=== PATIENT | female | born 1985 | race Hispanic/Latino ===

== ENCOUNTER 2019-08-24 09:01 | Emergency (ER) | payer OTHER, SELFPAY ==
--- NOTE | ~2019-08-24 | XR_ITS ---
EXAMINATION: XR lumbar spine 2-3V DATE: 08/24/2019 09:38 INDICATION: Low back pain radiating down right leg. TECHNIQUE: 3 views of lumbar spine were obtained. COMPARISON: None. FINDINGS: There is 3 degrees dextrocurvature of lumbar spine. Vertebral body heights and intervertebr al disc heights are normal. There are endplate osteophytes at L2-L3 and L3-L4. The facet joints are n ormal. IMPRESSION: 1. Mild lumbar spondylosis. Reviewed, dictated and finalized at location A. IMPRESSION: 1. Mild lumbar spondylosis.
[2019-08-24 09:03] VITALS: BP 133/60; PULSE 78; RESP 20; TEMP 36.6; O2SAT 100
--- NOTE | 2019-08-24 09:15 | ED.BACK ---
HPI - Back Pain/Injury General Chief Complaint: Back Pain/Injury Stated Complaint: BACK INJURY Time Seen by Provider: 08/24/19 09:20 Source: patient and RN notes reviewed Mode of arrival: ambulatory Limitations: no limitations History of Present Illness HPI Narrative: This is a 33 years old female presents to the office for an evaluation of lower back pain for two day. 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 She continued to finish out her shift despite her pain from 9 PM to 6 AM in the morning and then went back again the next evening. Pain is getting worse since injury with intermittent shooting pain in her back.She also report right upper shoulder pain with certain movement. She did not take anything for pain. Admits to history of back pain in the past however it has been many years ago.Denies any urinary incontinence or numbness or tingling in her lower leg. Related Data Allergies Allergy/AdvReac Type Severity Reaction Status Date / Time No Known Allergies Allergy Unknown Verified 08/24/19 09:16 Review of Systems Review of Systems: Narrative: CONSTITUTIONAL: Denies fever ENT: Denies congestion CARDIOVASCULAR: Denies chest pain RESPIRATORY: Denies dyspnea GASTROINTESTINAL: Denies nausea, vomiting, diarrhea. GENITOURINARY: Denies urinary or bowel incontinence SKIN: Denies rash MUSCULOSKELETAL: Reports acute back pain without radiating pain NEUROLOGIC: Denies lightheaded/dizziness/numbness PMFSH Social History Social History Smoking status: Never smoker Comments At time of signature, I agree with nursing past medical, surgical, social and family history. There is no relevant family history pertinent to the presenting complaint. Exam Narrative: Exam Narrative: GENERAL: This is a well-nourished, well-developed patient, in no apparent distress. NECK: Neck supple, non-tender without lymphadenopathy, masses or thyromegaly. CARDIOVASCULAR: Regular rate and rhythm without murmurs, gallops, or rubs. RESPIRATORY: Clear to auscultation. Breath sounds equal bilaterally. No wheezes, rales, or rhonchi. GASTROINTESTINAL: Abdomen soft, non-tender, nondistended. Bowel sounds are active. No hepato-splenomegaly, or palpable masses. No guarding. SKIN: warm, intact with no suspicious lesions or rash, good texture and turgor. NEURO: awake, alert, and oriented to person, place and time. There were no obvious focal neurologic abnormalities. Steady gait EXTREMITIES: upper extremities with NROM without obvious trauma/injury. BACK: Tenderness in the paraspinous muscles in the lumbar area. No tenderness over the spinous processes of the lumbar vertebrae. LEGS: Normal strength including dorsi-flexion and plantar flexion of the feet. Negative bilateral straight leg raising, normal and symmetrical knee and ankle reflexes. Shavonne Coma Scale Eye Opening: Spontaneous 4 [place] Coma Scale Motor: Obeys Commands 6 Shavonne Coma Scale Verbal: Oriented 5 Course Vital Signs Vital signs: Vital Signs Temperature 97.9 F 08/24/19 09:03 Pulse Rate 78 08/24/19 09:03 Respiratory Rate 20 08/24/19 09:03 Blood Pressure 133/60 08/24/19 09:03 Pulse Oximetry 100 08/24/19 09:03 Temperature 97.9 F 08/24/19 09:03 Pulse Rate 78 08/24/19 09:03 Respiratory Rate 20 08/24/19 09:03 Blood Pressure 133/60 08/24/19 09:03 Pulse Oximetry 100 08/24/19 09:03 MDM - Back Pain/Injury MDM Narrative Medical decision making narrative: Discharge instructions reviewed with patient, as well as provided in writing per nursing staff. The instructions also include specific and strict return/GO TO THE ER as well as f/u information. All questions have been answered, and the patient deny any further questions with discharge and discharge plan. Differential Diagnosis Differential diagnosis: Likely lumbar radiculopathy, sciatica, strain of lumbar region, thoracic back beverly
== END 2019-08-24 10:15 | disposition home or self-care (01) ==
PROVIDERS: Emergency Provider Nurse Practitioner; PCP Physician Assistant
DX: S39.012A Strain of muscle, fascia and tendon of lower back, initial encounter (principal); X50.0XXA Overexertion from strenuous movement or load, initial encounter; Y99.0 Civilian activity done for income or pay; M47.816 Spondylosis without myelopathy or radiculopathy, lumbar region; E11.9 Type 2 diabetes mellitus without complications
CPT/HCPCS: 72100; 99213; G0463

== ENCOUNTER 2021-11-10 10:28 | Emergency (ER) | payer OTHER, SELFPAY ==
--- NOTE | 2021-11-10 10:29 | ED.EYEPROB ---
HPI - Eye Problem General Chief complaint: Eye Problems Stated complaint: poss pink eye Time Seen by Provider: 11/10/21 10:29 Source: patient and RN notes reviewed History of Present Illness HPI Narrative: Patient is a 36-year-old female who presents the urgent care with complaints of left possible pinkeye. Patient states she woke up with it matted, draining and red this morning. Patient denies any trauma to the eye or injury. Denies any vision changes. Patient has not taken anything [id number] for her symptoms. No other complaints. No acute distress noted. Patient aware of the plan of care. Some parts of this dictation were generated by voice recognition software and may contain typographical and/or grammatical inaccuracies. Related Data Home Medications Medication Instructions Recorded Confirmed atorvastatin 20 mg tablet 20 mg PO DAILY 11/10/21 11/10/21 glimepiride 1 mg tablet 1 mg PO DAILY 11/10/21 11/10/21 hydroxyzine HCl 50 mg tablet 50 mg PO DAILY 11/10/21 11/10/21 metformin 500 mg tablet,extended 1,000 mg PO DAILY 11/10/21 11/10/21 release 24 hr Allergies Allergy/AdvReac Type Severity Reaction Status Date / Time No Known Allergies Allergy Unknown Verified 11/10/21 10:40 Review of Systems Review of Systems: CONSTITUTIONAL: Denies fever, chills, or sweats. EYES: Reports of redness of the left eye, drainage, itchiness ENT: Denies rhinorrhea, congestion, sore throat, or otalgia. CARDIOVASCULAR: Denies chest pain, palpitations, or edema. RESPIRATORY: Denies cough or dyspnea. GASTROINTESTINAL: Denies abdominal pain, nausea, vomiting, or diarrhea. GENITOURINARY: Denies dysuria or hematuria. SKIN: Denies rash or itching. MUSCULOSKELETAL: Denies back pain, joint pain, or myalgia. NEUROLOGIC: Denies headache, numbness, or weakness. All other systems reviewed are negative, except as documented in HPI. [facility] Social History Social History Smoking status: Never smoker Comments At the time of my signature, I reviewed and agree with the nursing past medical, surgical, social, and family history. There is no relevant family history pertinent to the patient complaint. Exam Narrative: GENERAL: This is a well-nourished, well-developed patient, in no apparent distress. HEAD: normocephalic, atraumatic. EYES: PERRL. Right sclera clear/white. Vision is grossly intact. Injected left conjunctive a with erythemic sclera without notable injury or trauma, clear drainage EARS: External ears normal NOSE: External nose normal with no obvious nasal discharge, nares without redness, no rhinorrhea. THROAT: Mucous membranes moist NECK: Neck supple CARDIOVASCULAR: Regular rate and rhythm without murmurs, gallops, or rubs. RESPIRATORY: Clear to auscultation. Breath sounds equal bilaterally. No wheezes, rales, or rhonchi. SKIN: warm, intact with no suspicious lesions or rash, good texture and turgor. NEURO: awake, alert, and oriented to person, place and time. There were no obvious focal neurologic abnormalities. EXTREMITIES: No clubbing, cyanosis, or edema. Course Course Level of Care: Express Care Visit Vital Signs Vital signs: Vital Signs Temperature 98.4 F 11/10/21 10:34 Pulse Rate 68 11/10/21 10:34 Respiratory Rate 16 11/10/21 10:34 Blood Pressure 131/78 11/10/21 10:34 Pulse Oximetry 99 11/10/21 10:34 Oxygen Delivery Room Air 11/10/21 10:34 Temperature 98.4 F 11/10/21 10:34 Pulse Rate 68 11/10/21 10:34 Respiratory Rate 16 11/10/21 10:34 Blood Pressure 131/78 11/10/21 10:34 Pulse Oximetry 99 11/10/21 10:34 Oxygen Delivery Room Air 11/10/21 10:34 Reviewed MDM - Eye Problem MDM Narrative Medical decision making narrative: Advised the patient take a daily antihistamine such as Claritin or Zyrtec in conjunction with Benadryl at night. Use the prescription eyedrops to the left eye, wiping the applicator tip after ea
[2021-11-10 10:34] VITALS: BP 131/78; PULSE 68; RESP 16; TEMP 36.9; O2SAT 99
== END 2021-11-10 10:55 | disposition home or self-care (01) ==
PROVIDERS: Emergency Provider Nurse Practitioner Family; PCP Physician Assistant
DX: H10.9 Unspecified conjunctivitis (principal); E78.00 Pure hypercholesterolemia, unspecified; E11.9 Type 2 diabetes mellitus without complications
CPT/HCPCS: 99213; G0463

== ENCOUNTER 2022-04-12 10:57 | Emergency (ER) | payer OTHER, SELFPAY ==
[2022-04-12 11:02] VITALS: BP 132/65; PULSE 72; RESP 16; TEMP 36.8; O2SAT 100
--- NOTE | 2022-04-12 11:49 | ED.URI ---
HPI - URI/Sore Throat General Chief Complaint: Upper Respiratory Infection Stated Complaint: Sore Throat Time Seen by Provider: 04/12/22 11:49 History of Present Illness HPI Narrative: 36-year-old female presenting for complaint of sore throat bilateral ear pressure since last night. She denies cough, shortness of breath, wheezing, nausea, vomiting diarrhea, fevers or chills. She denies sick contacts. She is not taking anything for symptoms. Related Data Home Medications Medication Instructions Recorded Confirmed atorvastatin 20 mg tablet 20 mg PO DAILY 11/10/21 04/12/22 glimepiride 1 mg tablet 1 mg PO DAILY 11/10/21 04/12/22 hydroxyzine HCl 50 mg tablet 50 mg PO DAILY 11/10/21 04/12/22 metformin 500 mg tablet,extended 1,000 mg PO DAILY 11/10/21 04/12/22 release 24 hr Allergies Allergy/AdvReac Type Severity Reaction Status Date / Time No Known Allergies Allergy Unknown Verified 04/12/22 11:24 Review of Systems Review of Systems: CONSTITUTIONAL: Denies body aches, fever, chills, or sweats. EYES: Denies visual changes, redness, or discharge. ENT: Denies rhinorrhea, congestion. CARDIOVASCULAR: Denies chest pain, palpitations, or edema. RESPIRATORY: Denies dyspnea. GASTROINTESTINAL: Denies abdominal pain, nausea, vomiting, or diarrhea. SKIN: Denies rash, itching, or wounds. MUSCULOSKELETAL: Denies back pain, joint pain, or myalgia. NEUROLOGIC: Denies headache PMFSH Social History Social History Smoking status: Never smoker Exam Narrative: GENERAL: well-appearing EYES: conjunctivae clear ENT: Mucous membranes moist. TMs pearly khan with normal light reflex bilaterally; no tragal tenderness. Oropharynx erythematous without lesions. Tonsils enlarged 1+ and without exudate. No drooling, no hoarseness, no trismus, uvula midline. No tripod positioning, hot potato voice, or soft palate swelling. NECK: Supple. No lymphadenopathy CHEST: Clear to auscultation, breath sounds equal. HEART: Regular rate and rhythm. No murmur heard. SKIN: Warm, dry, no rash. NEURO: Alert and oriented x3. Course Course Emergency Course: Patient is aware of diagnosis, understands and agrees to treatment plan. Anticipatory guidance given. Patient agrees to follow-up as directed and is aware of reasons to seek care at the emergency department. Portions of this record may have been created with voice recognition software Level of Care: Express Care Visit Vital Signs Vital signs: Vital Signs Temperature 98.3 F 04/12/22 11:02 Pulse Rate 72 04/12/22 11:02 Respiratory Rate 16 04/12/22 11:02 Blood Pressure 132/65 04/12/22 11:02 Pulse Oximetry 100 04/12/22 11:02 Oxygen Delivery Room Air 04/12/22 11:02 Temperature 98.3 F 04/12/22 11:02 Pulse Rate 72 04/12/22 11:02 Respiratory Rate 16 04/12/22 11:02 Blood Pressure 132/65 04/12/22 11:02 Pulse Oximetry 100 04/12/22 11:02 Oxygen Delivery Room Air 04/12/22 11:02 MDM - URI/Sore Throat MDM Narrative Medical decision making narrative: strep result reviewed with pt. Advise supportive treatments. Patient is appropriate for outpatient treatment and follow-up. Differential Diagnosis Differential diagnosis: Likely upper respiratory infection, viral infection and pharyngitis Lab Data Labs: Strep Screen Presumptive Negative *(Reference Range: Negative)* Discharge Plan Discharge Clinical Impression: Pharyngitis Patient Disposition: Home, Self-Care Condition: Stable Instructions: Pharyngitis (ED) Additional Instructions: Rapid strep swab was negative today You will be notified in a few days if the culture comes back positive for strep, and appropriate antibiotics will be called in at that time. if symptoms are due to a viral illness, it is not treated with antibiotics. Viral symptoms can be present
== END 2022-04-12 12:30 | disposition home or self-care (01) ==
PROVIDERS: Emergency Provider Nurse Practitioner Family; PCP Physician Assistant
DX: J02.9 Acute pharyngitis, unspecified (principal)
CPT/HCPCS: 87081; 87880; 99213; G0463

== ENCOUNTER 2022-04-14 13:12 | Emergency (ER) | payer OTHER, SELFPAY ==
[2022-04-14 13:27] VITALS: BP 121/62; PULSE 76; RESP 16; TEMP 37.1; O2SAT 99
--- NOTE | 2022-04-14 15:31 | ED.URI ---
HPI - URI/Sore Throat General Chief Complaint: Upper Respiratory Infection Stated Complaint: cough sore throat congestion eyes water Time Seen by Provider: 04/14/22 15:31 Source: patient, RN notes reviewed and old records reviewed Mode of arrival: ambulatory Limitations: no limitations History of Present Illness HPI Narrative: 36 year old female who presents to the [facility] care with complaints of dry cough, sore throat, headache, sneezing, watery eyes intermittent bilateral ear pain since Sunday with diarrhea since yesterday. Patient reports that she has been taking NyQuil for her symptoms, denies any fevers. Patient was seen in clinic 2 days ago for similar symptoms and strep screen at that time negative. MD elicited complaint: cough, sore throat, rhinorrhea, nasal congestion and other (diarrhea) Pain scale (0-10): 3 Treatments prior to arrival: other (NYQuil) Related Data Home Medications Medication Instructions Recorded Confirmed atorvastatin 20 mg tablet 20 mg PO DAILY 11/10/21 04/14/22 glimepiride 1 mg tablet 1 mg PO DAILY 11/10/21 04/14/22 metformin 500 mg tablet,extended 1,000 mg PO DAILY 11/10/21 04/14/22 release 24 hr Allergies Allergy/AdvReac Type Severity Reaction Status Date / Time No Known Allergies Allergy Unknown Verified 04/14/22 14:13 Review of Systems Review of Systems: CONSTITUTIONAL: Denies malaise, chills, sweats, or fever. EYES: Denies visual changes, redness, or discharge. ENT: Reports rhinorrhea, congestion, sinus pain, otalgia and sore throat. CARDIOVASCULAR: Denies chest pain, palpitations, or edema. RESPIRATORY: Reports cough.? Denies dyspnea. GASTROINTESTINAL: Denies abdominal pain, nausea, vomiting, reports diarrhea SKIN: Denies rash or itching. MUSCULOSKELETAL: Denies myalgia. NEUROLOGIC: Reports headache. All systems reviewed & are unremarkable except as noted in HPI and below PMFSH Past Medical History Medical History Diabetes Elevated cholesterol Fatty liver Surgical History Surgical History (Updated 04/18/22 @ 06:54 by Cortney Car NP) No history of previous surgery Social History Social History Smoking status: Never smoker Comments At time of signature, agree with nursing past medical, surgical, social and family history. There is no relevant family history pertinent to the presenting complaint Exam Narrative: GENERAL: Well-appearing, well-nourished, and in no acute distress. HEAD: Normocephalic EYES: PERRLA, conjunctivae clear ENT: Nares clear, turbinates edematous and erythematous, clear discharge. Mucous membranes moist. TM pearly khan with dull light reflex bilaterally; no tragal tenderness. Oropharynx erythematous without lesions. Tonsils enlarged and without exudate, no drooling, no hoarseness, no trismus, uvula midline. NECK: Supple. No lymphadenopathy CHEST: Clear to auscultation, breath sounds equal. No wheezing, rhonchi, rales, or stridor. No respiratory distress, speaks in full sentences.dry cough, SAO2 99% on room air HEART: Regular rate and rhythm. No murmur heard. SKIN: Warm, dry, no rash. NEURO: Alert and oriented x3. PSYCH: Normal mood and affect Course Course Emergency Course: Patient is aware of diagnosis, understands and agrees to treatment plan.? Anticipatory guidance given.? Patient agrees to follow-up as directed and is aware of reasons to seek care at the emergency department. Portions of this record may have been created with voice recognition software Level of Care: Express Care Visit Vital Signs Vital signs: Vital Signs Temperature 37.1 C 04/14/22 13:27 Pulse Rate 76 04/14/22 13:27 Respiratory Rate 16 04/14/22 13:27 Blood Pressure 121/62 04/14/22 13:27 Pulse Oximetry 99 04/14/22 13:27 Oxygen Delivery Room Air 04/14/22 13:27 Temperature 37.1 C 04/14/22 13:
== END 2022-04-14 15:44 | disposition home or self-care (01) ==
PROVIDERS: Emergency Provider Registered Nurse; PCP Physician Assistant
DX: J06.9 Acute upper respiratory infection, unspecified (principal); E11.9 Type 2 diabetes mellitus without complications
CPT/HCPCS: 87804; 99213; G0463